=== PATIENT | female | born 1980 | race Caucasian/White ===

== ENCOUNTER 2017-04-06 09:07 | Emergency (ER) | payer SELFPAY ==
[~2017-04-06 09:07] MED LIST: Z.0.NO CURRENT MEDS
[2017-04-06 09:09] VITALS: BP 131/88; PULSE 92; RESP 18; TEMP 98.6; O2SAT 98
[2017-04-06] MEDS ORDERED: FAMOTIDINE 20 MG/2 ML VIAL IV PUSH SCH (09:30)
[2017-04-06] MEDS ORDERED: SODIUM CHLORIDE 0.9% FLUSH 10 ML FLUSH IVF PRN (09:30)
[2017-04-06] MEDS ORDERED: ASPIRIN 81 MG CHEW TAB PO ONE (09:30)
[2017-04-06] MEDS ORDERED: ONDANSETRON HCL 4 MG/2 ML VIAL IV PUSH ONE (09:30)
--- NOTE | 2017-04-06 09:54 | RADRPT ---
EXAM DATE/TIME: 04/06/2017 09:39 [place] COMPARISON: No previous studies available for comparison. INDICATIONS : Chest pain. MEDICAL HISTORY : Smoker. SURGICAL HISTORY : section. Tubal ligation. ENCOUNTER: Initial ACUITY: 3 days PAIN SCORE: 9/10 LOCATION: chest midline. FINDINGS: A single view of the chest demonstrates the lungs to be symmetrically aerated without evidence of mas s, infiltrate or effusion. The cardiomediastinal contours are unremarkable. Osseous structures are intact. CONCLUSION: Normal examination. Gene Braun MD on April 06, 2017 at 9:52 Board Certified Radiologist. This report was verified electronically.
[2017-04-06 10:08] VITALS: O2SAT 100
--- NOTE | 2017-04-06 10:13 | PD ---
HPI . Chest and epigastric pain Chief Complaint: Abdominal Pain Time Seen by Provider: 09:28 Travel History International Travel<30 days: No Contact w/Intl Traveler<30days: No Traveled to known affect area: No History of Present Illness HPI This patient presents with chief complaint of chest and epigastric pain. Onset was 3 days ago. It is associated with nausea and left arm numbness. Her epigastric pain is exacerbated by oral intake. She describes the symptoms as severe. She denies any previous similar history. She expresses concern because both of her parents had MIs in their early 40s. The patient is a smoker. She denies any previous similar history. She states that she does smoke but she does not drink alcohol. Smoking also exacerbates her abdominal pain. PFSH Past Medical History Diminished Hearing: No Musculoskeletal: Yes (back pain) Influenza Vaccination: No ?: Not LMP: 03/23/17 Tubal Ligation: Yes Past Surgical History Section: Yes Social History Alcohol Use: No Tobacco Use: Yes (1 PPD) Substance Use: No Allergies-Medications (Allergen,Severity, Reaction): Coded Allergies: No Known Allergies (Verified Adverse Reaction, Unknown, 04/06/17) Reported Meds & Prescriptions Reported Meds & Active Scripts Active Prilosec (Omeprazole Magnesium) 20 Mg Tab 1 Tab PO DAILY Carafate (Sucralfate) 1 Gram Tab 1 Gm PO QID On empty stomach Review of Systems Except as stated in HPI: all other systems reviewed are Neg Cardiovascular: Positive: Chest Pain or Discomfort Gastrointestinal: Positive: Nausea, Abdominal Pain Physical Exam Narrative GENERAL: Awake and alert and in no acute distress. SKIN: warm/dry. Good color. HEAD: Normocephalic. Atraumatic. EYES: Pupils equal and round. No scleral icterus. No injection or drainage. ENT: No nasal bleeding or discharge. Mucous membranes pink and moist. NECK: Trachea midline. Full range of motion without pain.. CARDIOVASCULAR: Regular rate and rhythm. Heart sounds normal. RESPIRATORY: No accessory muscle use. Clear to auscultation. Breath sounds equal bilaterally. GASTROINTESTINAL: Abdomen soft. Mild epigastric tenderness without guarding or rebound. Bowel sounds present. Nondistended. MUSCULOSKELETAL: No obvious deformities. NEUROLOGICAL: Awake and alert. No obvious cranial nerve deficits. Motor grossly within normal limits. Normal speech. PSYCHIATRIC: Appropriate mood and affect; insight and judgment normal. Data Data Last Documented VS Vital Signs Date Time Temp Pulse Resp B/P (MAP) Pulse Ox O2 Delivery O2 Flow Rate FiO2 04/06/17 10:08 100 Room Air 04/06/17 09:09 98.6 92 18 Orders Orders Basic Metabolic Panel (Bmp) (04/06/17 09:28) Complete Blood Count With Diff (04/06/17:28) Magnesium (Mg) (04/06/17:) Prothrombin Time / Inr (Pt) (04/06/17:) Act Partial Throm Time (Ptt) (04/06/17:28) Troponin I (04/06/17:) Chest, Single Ap (04/06/17:) Ecg Monitoring (04/06/17:) Iv Access Insert/Monitor (04/06/17:) Oximetry (04/06/17:28) Aspirin Chew (Aspirin Chew) (04/06/17 09:30) Sodium Chloride 0.9% Flush (Ns Flush) (04/06/17 09:30) Ondansetron Inj (Zofran Inj) (04/06/17 09:30) Famotidine Inj (Pepcid Inj) (04/06/17 09:30) Hepatic Functional Panel (04/06/17 09:49) Lipase (04/06/17 09:49) Electrocardiogram (04/06/17 09:25) Al-Mag Hy-Si 40-40-4 Mg/Ml Liq (Mag-Al P (04/06/17 11:30) Lidocaine 2% Viscous (Xylocaine 2% Visco (04/06/17 11:30) Labs Laboratory Tests Test 04/06/17 09:28 White Blood Count 12.8 TH/MM3 Red Blood Count 4.41 MIL/MM3 Hemoglobin 14.0 GM/DL Hematocrit 41.9 % Mean Corpuscular Volume 95.1 FL Mean Corpuscular Hemoglobin 31.7 PG Mean Corpuscular Hemoglobin Concent 33.3 % Red Cell Distribution Width 14.8 % Platelet Count 283 TH/MM3 Mean Platelet Volume 10.0 FL Neutrophils (%) (Auto) 75.2 % Lymphocytes (%) (Auto) 16.1 % Monocytes (%) (Auto) 6.9 % Eosinophils (%) (Auto) 1.4 % Basophils (%) (Auto) 0.4 % Neutrophils # (Auto) 9.6 TH/MM3 Lymphocytes # (Auto) 2.0 TH/MM3 Monocytes # (Auto) 0.9 TH/MM3 Eosinophils # (Auto) 0.2 TH/MM3 Basophils # (Auto) 0.1 TH/MM3 CBC Comment DIFF FINAL Differential Comment Prothrombin Time 10.7 SEC Prothromb Time International Ratio 1.1 RATIO Activated Partial Thromboplast Time 28.5 SEC Blood Urea Nitrogen 17 MG/DL Creatinine 0.74 MG/DL Random Glucose 105 MG/DL Calcium Level 8.9 MG/DL Magnesium Level 2.1 MG/DL Sodium Level 138 MEQ/L Potassium Level 4.3 MEQ/L Chloride Level 106 MEQ/L Carbon Dioxide Level 25.4 MEQ/L Anion Gap 7 MEQ/L Estimat Glomerular Filtration Rate 88 ML/MIN Total Bilirubin 0.7 MG/DL Direct Bilirubin 0.1 MG/DL Indirect Bilirubin 0.6 MG/DL Aspartate Amino Transf (AST/SGOT) 14 U/L Alanine Aminotransferase (ALT/SGPT) 16 U/L Alkaline Phosphatase 76 U/L Troponin I LESS THAN 0.02 NG/ML Total Protein 7.6 GM/DL Albumin 4.1 GM/DL Lipase 88 U/L MDM Medical Decision Making Medical Screen Exam Complete: Yes Emergency Medical Condition: Yes Medical Record Reviewed: Yes (past medical history is negative. ) Interpretation(s) Her EKG shows a normal sinus rhythm with no ST segment elevation or depression. Differential Diagnosis Differential diagnosis of chest pain includes but is not limited to musculoskeletal pain, pulmonary embolism, acute coronary syndrome, pneumonia, pleurisy Narrative Course Patient presents with chest and epigastric pain. She does have risk factors for coronary artery disease. However, her symptoms sound more like peptic ulcer disease in that her symptoms are exacerbated by oral intake. Cardiac workup is in progress. Meanwhile, she will be given aspirin. She will also be given Pepcid and Zofran. Last Impressions Chest X-Ray 04/06/17927 Signed Impressions: Service Date/Time: , April 06, 2017 09:39 - CONCLUSION: Normal examination. Gene Braun MD The chest x-ray was independently viewed by me. CBC & BMP Diagram 04/06/17 09:28 Calcium Level 8.9, Magnesium Level 2.1 LFTs normal. Lipase 88. trop < 0.02 The patient states that she continues to have epigastric pain. She states the pain comes and goes. She has been given Pepcid IV. I will try a GI cocktail. The GI cocktail has helped her pain. The most likely etiology for her pain is peptic ulcer disease. I will start her on a PPI and Carafate. Diagnosis Primary Impression: Chest pain Qualified Codes: R07.9 - Chest pain, unspecified Additional Impression: Epigastric pain Referrals: [facility] [address] Patient Instructions: Diet for Stomach Ulcers and Gastritis (GEN), General Instructions Med/Other Pt SpecificInfo: Prescription(s) given Scripts Omeprazole Magnesium (Prilosec) 20 Mg Tab 1 TAB PO DAILY, #30 Prov: Richelle Christianson MD 04/06/17 Sucralfate (Carafate) 1 Gram Tab 1 GM PO QID for Ulcer Prevention, #120 TAB 0 Refills On empty stomach Prov: Richelle Christianson MD 04/06/17 Disposition: 01 DISCHARGE HOME Condition: Stable Richelle Christianson MD Apr 06, 2017 10:13
[2017-04-06 10:41] LABS: AUTOMATED NEUTROPHIL # 9.6 TH/MM3 (1.8-7.7); BASOPHIL # 0.1 TH/MM3 (0-0.2); BASOPHIL % 0.4 % (0.0-2.0); EOSINOPHIL # 0.2 TH/MM3 (0-0.4); EOSINOPHIL % 1.4 % (0.0-4.0); HEMATOCRIT 41.9 % (35.0-46.0); LYMPH % 16.1 % (9.0-44.0); MEAN CELL VOLUME 95.1 FL (80.0-100.0); MEAN CORPUSCULAR HEMOGLOBIN 31.7 PG (27.0-34.0); MEAN CORPUSCULAR HGB CONC 33.3 % (32.0-36.0); MONO % 6.9 % (0.0-8.0); MONOCYTE # 0.9 TH/MM3 (0-0.9); NEUT % 75.2 % (16.0-70.0); PLATELET COUNT 283 TH/MM3 (150-450); RED BLOOD COUNT 4.41 MIL/MM3 (4.00-5.30); RED CELL DISTRIBUTION WIDTH 14.8 % (11.6-17.2); WHITE BLOOD COUNT 12.8 TH/MM3 (4.0-11.0)
[2017-04-06 10:49] LABS: INTERNATIONAL NORMALIZED RATIO 1.1 RATIO; PROTHROMBIN TIME - PATIENT 10.7 SEC (9.8-11.6)
[2017-04-06 11:04] LABS: BICARBONATE 25.4 MEQ/L (21.0-32.0); BLOOD UREA NITROGEN 17 MG/DL (7-18); CALCIUM 8.9 MG/DL (8.5-10.1); CHLORIDE 106 MEQ/L (98-107); CREATININE 0.74 MG/DL (0.50-1.00); GLOMERULAR FILTRATION RATE 88 ML/MIN (>89); GLUCOSE,RANDOM 105 MG/DL (74-106); MAGNESIUM 2.1 MG/DL (1.5-2.5); SODIUM (NA) 138 MEQ/L (136-145)
[2017-04-06 11:09] LABS: TROPONIN I LESS THAN 0.02 NG/ML (0.02-0.05)
[2017-04-06 11:12] LABS: ALBUMIN 4.1 GM/DL (3.4-5.0); DIRECT BILIRUBIN ADULT 0.1 MG/DL (0.0-0.2)
[2017-04-06 11:14] LABS: INDIRECT BILIRUBIN 0.6 MG/DL (0.0-0.8); TOTAL BILIRUBIN ADULT 0.7 MG/DL (0.2-1.0); TOTAL PROTEIN 7.6 GM/DL (6.4-8.2)
[2017-04-06] MEDS ORDERED: LIDOCAINE VISCOUS 2% SOLN 15 ML UDC PO ONE (11:30)
[2017-04-06] MEDS ORDERED: ALUMINUM/MAGNESIUM/SIMETH 30 ML CUP PO ONE (11:30)
[2017-04-06] MEDS ORDERED: PRIL20TA2 PO (12:08)
[2017-04-06] MEDS ORDERED: CARA1TAB6 PO (12:08)
--- NOTE | 2017-04-06 13:27 | EKG ---
Date Performed: 04/06/2017 Time Performed: 09:25:18 PTAGE: 37 years EKG: Sinus rhythm POSSIBLE LEFT ATRIAL ENLARGEMENT BORDERLINE ECG NO PREVIOUS TRACING DOCTOR: Elbert Saavedra Interpretating Date/Time 04/06/2017 13:26:48
== END 2017-04-06 15:40 | disposition home or self-care (01) ==
LOC: NEPE 09:07
DX: R07.9 Chest pain, unspecified (principal); R10.13 Epigastric pain; R20.0 Anesthesia of skin; R11.0 Nausea; Z79.899 Other long term (current) drug therapy; F17.200 Nicotine dependence, unspecified, uncomplicated
CPT/HCPCS: 71010; 80048; 80076; 83690; 83735; 84484; 85025; 85610; 85730; 93005; 96374; 96375; 99285; J2405